=== PATIENT | female | born 1965 | race Caucasian/White ===

== ENCOUNTER 2017-08-23 13:52 | Emergency (ER) | payer OTHER ==
[2017-08-23 13:56] VITALS: BP 122/89; PULSE 90; TEMP 99.1
[2017-08-23] MEDS ORDERED: AMOX TR/POT CLAV 875MG/125MG TABLETS (FP) PO ONE (14:24)
--- NOTE | 2017-08-23 14:25 | PDOC ---
History of Present Illness - General History Source: Patient Exam Limitations: No Limitations - History of Present Illness Initial Comments: 08/23/17 14:52 The patient is a 52 year old female with no significant past medical history presents to the emergency department for evaluation of left hand s/p dog bite. The patient reports receiving a bite from another dog after trying to prevent her own dog from fighting with another owners dog. The patient reports a laceration on the dorsal side of her left hand with moderate pain and associated swelling. She also reports an abrasion on the palmar aspect of the left hand. She states her dog is currently enroute to the pet emergency room after receiving a bite from the other dog. The patient presents to the emergency department for evaluation directly after being bit. The patients immunizations are up to date (last tetanus on 04/2013). The patient denies shortness of breath, headache, and dizziness. Denies fevers, chills, nausea, vomiting, diarrhea, and constipation. Denies any other kinds of injury. Allergies: Sulfonamide antibiotics, Tetracyclines, Dairy, Gluten. Past surgical history: Patient denies. Social history: No reported cigarette, alcohol, or drug use. <Giuliana Jernigan - Last Filed: 08/23/17 14:52> <Armando Huang - Last Filed: 08/23/17 15:55> - General Chief Complaint: Bite Stated Complaint: left hand dog bite Time Seen by Provider: 08/23/17 14:06 Past History <Giuliana Jernigan - Last Filed: 08/23/17 14:52> - Past Medical History COPD: No DVT: No Dementia: No - Suicide/Smoking/Psychosocial Hx Smoking History: Never smoked Hx Alcohol Use: No Drug/Substance Use Hx: No Substance Use Type: None <Armando Huang - Last Filed: 08/23/17 15:55> - Past Medical History Allergies/Adverse Reactions: Allergies Allergy/AdvReac Type Severity Reaction Status Date / Time gluten Allergy Verified 08/23/17 13:53 Sulfa (Sulfonamide Allergy Verified 08/23/17 13:53 Antibiotics) Tetracyclines Allergy Verified 08/23/17 13:53 dairy Allergy Uncoded 08/23/17 13:53 Home Medications: Ambulatory Orders Amox-Tr/K Cl [Augmentin 875-125mg Tablet -] 1 tab PO Q12H #10 tablet 08/23/17 Review of Systems - Review of Systems Able to Perform ROS?: Yes Comments:: CONSTITUTIONAL: Absent: fever, no chills, no fatigue EYES: Absent: visual changes ENT: Absent: ear pain, no sore throat CARDIOVASCULAR: Absent: chest pain, no palpitations RESPIRATORY: Absent: cough, no SOB GI: Absent: abdominal pain, no nausea, no vomiting, no constipation, no diarrhea GENITOURINARY: Absent: dysuria, no frequency, no hematuria MUSCULOSKELETAL: (+)Left hand laceration. (+)Left hand pain. (+)Left hand swelling. Absent: back pain, no arthralgia, no myalgia SKIN: Absent: rash NEURO: Absent: headache <Giuliana Jernigan - Last Filed: 08/23/17 14:52> *Physical Exam - Vital Signs Last Vital Signs Temp Pulse Resp BP Pulse Ox 99.1 F 90 18 122/89 100 08/23/17 13:52 08/23/17 13:52 08/23/17 13:52 08/23/17 13:52 08/23/17 13:52 - Physical Exam Comments: GENERAL: Well-appearing, well-nourished. No apparent distress. Cooperative. HEENT: Normocephalic, atraumatic. PERRL, EOM intact. CARDIOVASCULAR: Normal S1, S2. Regular rate and rhythm. PULMONARY: Clear to auscultation bilaterally. ABDOMEN: Soft, non-distended, non-tender. EXTREMITIES: (+)1cm laceration/puncture on dorsum of left hand, over the midportion of third metacarpal. (+)Superficial laceration/abrasion on palmar aspect of left hand, mid pal, thenar eminence. No foreign bodies are visible or palpable. Sensation to all 5 digits is intact. Extensor function is preserved with full strength against resistance all 5 digits. Flexion of the PIP and DIP joints are preserved and strong against resistance. Capillary refill is intact. Otherwise Normal ROM in all four extremities SKIN: Warm, dry. No rash NEUROLOGICAL: No focal neurological deficits. <Giuliana Jernigan - Last Filed: 08/23/17 14:52> - Vital Signs Last Vital Signs Temp Pulse Resp BP Pulse Ox 99.1 F 90 18 122/89 100 08/23/17 13:52 08/23/17 13:52 08/23/17 13:52 08/23/17 13:52 08/23/17 13:52 <Armando Huang - Last Filed: 08/23/17 15:55> ED Treatment Course - Medications Given in the ED: ED Medications Discontinued Medications Generic Name Dose Route Start Last Admin Trade Name Eric PRN Reason Stop Dose Admin Amoxicillin/Clavulanate Potassium 1 tab 08/23/17 14:24 08/23/17 14:30 Augmentin - 875mg Tablet PO 08/23/17 14:25 1 tab ONCE ONE Administration <Giuliana Jernigan - Last Filed: 08/23/17 14:52> Medical Decision Making - Medical Decision Making 08/23/17 14:36 Patient is a healthy female, specifically denies diabetes Physical exam: Alert and oriented well-developed well-nourished no acute distress cooperative Left hand: There is a 1 cm laceration/puncture of the dorsum of the hand, over the midportion of the third metacarpal. There is also a superficial laceration/ abrasion over the palmar aspect of the hand, mid palm, thenar eminence. No foreign bodies are visible or palpable. Sensation to all 5 digits is intact to 2. discrimination. Extensor function is preserved with full strength against resistance all 5 digits. Flexion of the PIP and DIP joints are preserved and strong against resistance. Capillary refill is intact Impression: Dog bite, puncture wound, rule out foreign body, no tendon or nerve damage is apparent Plan: X-ray, immobilization, antibiotics, and follow-up with hand specialist. 08/23/17 15:53 X-rays negative for foreign body Wounds copiously irrigated and scrubbed with normal saline. Dressed with bacitracin. Volar splint was applied and a sling for immobilization. Instructions for wound care immobilization and immediate follow-up if sign of infection. Discharged fully ambulatory in no significant pain or other distress to follow-up as directed <Armando Huang - Last Filed: 08/23/17 15:55> *DC/Admit/Observation/Transfer - Attestations Scribe Attestion: Documentation prepared by Giuliana Jernigan, acting as medical collector for Armando Huang MD. <Giuliana Jernigan - Last Filed: 08/23/17 14:52> - Discharge Dispostion Decision to Admit order: No <Armando Huang - Last Filed: 08/23/17 15:55> Diagnosis at time of Disposition: Puncture wound, hand Qualifiers: Encounter type: initial encounter Foreign body presence: without foreign body Laterality: left Qualified Code(s): S61.432A - Puncture wound without foreign body of left hand, initial encounter - Discharge Dispostion Disposition: HOME Condition at time of disposition: Improved - Prescriptions Prescriptions: Amox-Tr/K Cl [Augmentin 875-125mg Tablet -] 1 tab PO Q12H #10 tablet - Referrals Referrals: Pawan Beckett MD [Staff Physician] - 24 hours - Patient Instructions Printed Discharge Instructions: How to Care for a Domestic Animal Bite Additional Instructions: Rest and elevate. Warm compresses. Sling for immobilization. The more immobile, the less risk of infection. Antibiotic as directed If pain swelling redness or drainage occurs, return to ER immediately or see hand specialist for further evaluation and treatment. Hand infections develop rapidly and may cause severe damage and disability due to tendon and nerve damage.
[2017-08-23] MEDS ORDERED: AMOX TR/POT CLAV 875MG/125MG TABLETS (FP) ONE (14:26)
== END 2017-08-23 15:38 | disposition home or self-care (01) ==
LOC: FER 13:52
PROC: 2W3DX1Z Immobilization of Left Lower Arm using Splint (ICD-10-PCS; principal; 2017-08-23)
DX: S61.432A Puncture wound without foreign body of left hand, initial encounter (principal); W54.0XXA Bitten by dog, initial encounter; Y93.89 Activity, other specified; Y92.89 Other specified places as the place of occurrence of the external cause
CPT/HCPCS: 73130-TC-LR-FY; 99283-25